=== PATIENT | female | born 1950 | race Caucasian/White ===

== ENCOUNTER 2018-06-06 09:36 | Observation (INO) | payer MEDICARE, BC ==
[~2018-06-06] VITALS: Ht 162.6 cm; Wt 98.0 kg
[~2018-06-06 09:36] MED LIST: ASPIR 8181 MG PO; CLARITIN10 MG; CLONIDINE0.1 PO; FLONASE 0.05%50 MCG NASAL; LEVAQUIN 750 M750 MG PO; TOPROL XL50 MG PO; TRIAMTERENE-HC1 EACH PO; ZOLOFT50 MG PO
[2018-06-06 09:46] VITALS: BP 185/88
[2018-06-06] MEDS ORDERED: NORVASC5 MG PO (09:53)
[2018-06-06 10:26] LABS: ABSOLUTE BASOPHILS 0.1 thou/uL (0.0-0.2); ABSOLUTE EOSINOPHILS 0.2 thou/uL (0.0-0.7); ABSOLUTE LYMPHOCYTES 1.1 thou/uL (0.8-5.3); ABSOLUTE MONOCYTES 0.7 thou/uL (0.0-1.2); ABSOLUTE NEUTROPHILS 7.6 thou/uL (1.6-8.1); BASOPHILS 1.1 %; EOSINOPHILS 2.3 %; HEMATOCRIT 47.1 % (37.0-47.0); HEMOGLOBIN 15.9 gm/dL (12.0-15.0); LYMPHOCYTES 11.4 %; MCH 30.6 pg (26.0-34.0); MCHC 33.7 g/dL (28.0-37.0); MONOCYTES 7.4 %; MPV 9.2 fl. (7.2-11.1); NUCLEATED RBCS 0 /100WBC; PLATELET COUNT* 260 thou/uL (150-400); POLYS 77.8 %; RBC 5.18 mil/uL (4.20-5.00); RDW-CV 14.3 % (10.5-14.5); WBC 9.7 thou/uL (4.0-11.0)
[2018-06-06 10:37] LABS: APTT 27.5 Seconds (25.0-31.3)
[2018-06-06 10:38] LABS: ANION GAP 11 mmol/L (7-16); BUN 23 mg/dL (7-18); CHLORIDE 97 mmol/L (98-107); CO2 29 mmol/L (21-32); CREATININE 0.6 mg/dL (0.6-1.3); GLUCOSE 119 mg/dL (70-99); SODIUM 137 mmol/L (136-145)
[2018-06-06 10:44] LABS: POTASSIUM 2.8 mmol/L (3.5-5.1)
[2018-06-06 10:49] LABS: ALBUMIN 3.6 g/dL (3.4-5.0); ALKALINE PHOSPHATASE 50 U/L (46-116); NT-PRO BRAIN NAT PEPTIDE 113 pg/mL (<300); SGOT 16 U/L (15-37); SGPT 26 U/L (30-65); TOTAL BILIRUBIN 0.4 mg/dL (<0.1-1.0); TOTAL PROTEIN 7.3 g/dL (6.4-8.2); TROPONIN-I LEVEL <0.06 ng/mL (<0.06)
[2018-06-06 10:51] LABS: URINE BILIRUBIN NEGATIVE (Negative); URINE BLOOD NEGATIVE (Negative); URINE CLARITY CLEAR; URINE COLOR YELLOW; URINE GLUCOSE-RANDOM NEGATIVE (Negative); URINE KETONES 1+ (Negative); URINE LEUKOCYTES-REFLEX NEGATIVE (Negative); URINE NITRITE-REFLEX NEGATIVE (Negative); URINE PROTEIN NEGATIVE (Negative); URINE SPECIFIC GRAVITY 1.025 (1.005-1.030); URINE UROBILINOGEN 0.2 E.U./dl (0.2-1.0)
[2018-06-06 12:00] VITALS: BP 139/86
[2018-06-06 12:43] VITALS: BP 159/80
[2018-06-06 13:05] VITALS: BP 165/79
--- NOTE | 2018-06-06 13:35 | NUR ---
PT ORIENTED TO ROOM AND UNIT. BED LOW AND LOKED, SIDE RAILS UPX 3, CALL LIGHT IN REACH WILL CONTINUE TO ASSESS.
--- NOTE | 2018-06-06 16:55 | NUR ---
PT OFF UNIT TO MRI AT 1600
--- NOTE | 2018-06-06 17:32 | EKG ---
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
--- NOTE | 2018-06-06 17:43 | NUR ---
PT RETURN FROM MRI.
[2018-06-06 20:45] VITALS: BP 135/74
[2018-06-07] VITALS: BP 127/70
[2018-06-07 04:00] VITALS: BP 127/60
[2018-06-07 05:19] LABS: ABSOLUTE BASOPHILS 0.1 thou/uL (0.0-0.2); ABSOLUTE EOSINOPHILS 0.2 thou/uL (0.0-0.7); ABSOLUTE LYMPHOCYTES 1.6 thou/uL (0.8-5.3); ABSOLUTE NEUTROPHILS 5.3 thou/uL (1.6-8.1); BASOPHILS 1.1 %; EOSINOPHILS 2.2 %; HEMATOCRIT 45.1 % (37.0-47.0); LYMPHOCYTES 19.6 %; MCH 30.5 pg (26.0-34.0); MCHC 33.4 g/dL (28.0-37.0); MCV 91.3 fL (80.0-100.0); MONOCYTES 12.8 %; MPV 8.7 fl. (7.2-11.1); NUCLEATED RBCS 0 /100WBC; PLATELET COUNT* 252 thou/uL (150-400); POLYS 64.3 %; RBC 4.94 mil/uL (4.20-5.00); RDW-CV 14.5 % (10.5-14.5); WBC 8.2 thou/uL (4.0-11.0)
[2018-06-07 05:35] LABS: CREATININE 0.6 mg/dL (0.6-1.3); MAGNESIUM 2.2 mg/dL (1.8-2.4); POTASSIUM 3.2 mmol/L (3.5-5.1)
[2018-06-07 06:07] LABS: CHOLESTEROL 177 mg/dL (<200); HDL CHOLESTEROL 49 mg/dL (>40); LDL CHOLESTEROL 114 mg/dL (<100); SERUM ASSESSMENT Clear; TC:HDL 3.6 Ratio (Not establshd); TRIGLYCERIDE 74 mg/dL (<150); VLDL 15 mg/dL (<40)
--- NOTE | 2018-06-07 07:45 | NUR ---
PT CARE ASSUMED AT 1930. SAT MAINTAINED 96%, TITRATED FROM 1L TO RA. ALERT AND ORIENTED X4. CALL LIGHT WITHIN REACH AND BE DIN LOW POSITION. UP WITH STANDBY ASSIST. STATED HEADACHE, MEDICATION GIVEN PER EMAR. POTASSIUM-3.2, NOTIFIED, HAVENT RECIEVED ORDER. [facility] DONE AND CHARTED.
[2018-06-07 08:20] VITALS: BP 135/71
[2018-06-07] MEDS ORDERED: AUGMENTIN 875-1 EACH PO (10:12)
[2018-06-07] MEDS ORDERED: KLOR-CON 1010 MEQ PO (10:13)
[2018-06-07 12:14] VITALS: BP 135/71
[2018-06-07 12:38] VITALS: BP 141/84
--- NOTE | 2018-06-07 12:47 | NUR ---
ASSUMED CARE OF PT AT 0730. PT A&O X4, CALM AND COOPERTIVE. VSS AND SR ON THE MONITOR. PT DENIED ANY C/O PAIN OR DISTRESS AND STATED 'I FEEL MUCH BETTER.' PT DISCHARGED HOME WITH , PT AND VERBALIZED UNDERSTANDING OF DISCHARGE TEACHING THAT INCLUDED MEDICATION MANAGEMETN AND F/U CARE, WERLL WHEN TO CONTACT YOUR PROVIDER. PT TOOK ALL PERSONAL BELONGINGS AND PRESCRIPTIONS AT TIME OF DISCHARGE. PT VSS, SKIN W/D/I AND NO C/O PAIN OR DISTRESS AT TIME OF DISCHARGE. IV AND HORSE BREAKER REMOVED PRIOR TO DISCHARGE.
[2018-06-07 21:08] LABS: GLYCOHEMOGLOBIN (HGB A1C) 5.6 % (4.8-5.6)
--- NOTE | 2018-06-15 15:44 | CON ---
[address] [address] CONSULTATION Name: WILLARD DEVLIN Room: [address] [place]#: [id number] Admission: 06/06/18 Attend Phys: Yehuda Bautista MD Discharge: 06/07/18 Date of : 46 Report #: [id number] THIS REPORT FOR: //name// CC: Yehuda Dey DATE OF SERVICE: 06/07/2018 HISTORY OF PRESENT ILLNESS: This is a 67-year-old female patient who was evaluated by me for a neurological etiology for the patient's dizziness. The patient indicated that she suffers from chronic sinusitis. When it flares up, sometimes she has dizziness. Her dizziness was more severe yesterday. Movement of the head made it worse. Her symptoms have resolved this morning. She is able to walk to the bathroom without any significant difficulty with ambulation. REVIEW OF SYSTEMS: Indicates she is not a diabetic. She has no prior history of stroke. She did have some nausea associated with this dizziness. I carried out the 14-point review of systems and she does not appear to have any eye, ENT, cardiac, respiratory, , musculoskeletal, constitutional, dermatological, hematological, psychiatric, throat and psychiatric symptom associated with present symptomatology. PAST MEDICAL HISTORY: Positive for some occasional dizziness when her sinuses flare up. FAMILY HISTORY: Negative for any early age stroke. SOCIAL HISTORY: She drinks alcohol once a year. She is retired, but still is pretty active. She does not smoke presently. PHYSICAL EXAMINATION: NEUROLOGIC: The patient's examination indicates she is alert and responsive. She can follow simple commands. She is oriented. Her speech, concentration, fund of knowledge and memory are at her baseline. Cranial nerve examination 2-12 looks unremarkable. I did not see any significant nystagmus. She has symmetrical strength, sensation, reflexes and tone in all 4 extremities. There is no meningeal sign. There is no papilledema. There is no cerebellar sign. GENERAL: She is a reasonably well-developed individual who does not have any dysmorphic features of eyes, ears and face. Her vision and hearing looks adequate. VITAL SIGNS: Her blood pressure is 135/71, respirations 18, pulse is 71 and temperature is 97.7. NECK: She has no thyroid mass. CARDIAC EXAMINATION: Unremarkable. LUNGS: No respiratory difficulty or rhonchi was noticed. EXTREMITIES: Pulses are difficult to feel, but she has no edema[place] [address] CONSULTATION Name: WILLARD DEVLIN Room: [address]#: [id number] Admission: 06/06/18 Attend Phys: Yehuda Bautista MD Discharge: 06/07/18 Date of : 46 Report #: [id number] jaundice. LABORATORY DATA: Laboratory workup indicates that her BUN was 23 and her hemoglobin was also trace high when she came in. Her potassium was significantly low. She had an MRI of the brain, MRA of the head and neck; they were unremarkable. IMPRESSION: It is unlikely that there is any neurological etiology for this patient's symptoms. She should be worked up for systemic etiologies including ENT pathology like benign positional vertigo or vestibular neuronitis. I do not believe any further neurological workup is indicated in this patient, especially because the patient is symptomatic and I will suggest continue workup and management of systemic causes. I discussed that aspect with the patient and I discussed that aspect with the family. I will talk to the hospitalist, but otherwise, I will sign off. Please call if further symptoms occur or any neurological followup is needed. Thank you very much for this referral. <ELECTRONICALLY SIGNED> By: Leandro Mcgee MD 06/15/18 1544 0932 [id number] Mcgee MD /nt
== END 2018-06-07 12:30 | disposition home or self-care (01) ==
LOC: M.ERS 09:36 → M.2W 11:32 → M.TBA-ER 11:32 → M.2W 11:32
PROVIDERS: Emergency Medicine Emergency Medical Services; ADMIT Family Medicine
DX: H81.10 Benign paroxysmal vertigo, unspecified ear (principal); I16.1 Hypertensive emergency; E87.6 Hypokalemia; I63.9 Cerebral infarction, unspecified; F41.9 Anxiety disorder, unspecified; I10 Essential (primary) hypertension; I16.0 Hypertensive urgency; J32.9 Chronic sinusitis, unspecified; N39.0 Urinary tract infection, site not specified; Z87.891 Personal history of nicotine dependence; Z88.2 Allergy status to sulfonamides; Z88.8 Allergy status to other drugs, medicaments and biological substances; Z79.899 Other long term (current) drug therapy; Z79.82 Long term (current) use of aspirin; R11.0 Nausea; Z72.89 Other problems related to lifestyle

== ENCOUNTER 2018-06-28 20:47 | Inpatient (IN) | payer MEDICARE, BC ==
[~2018-06-28] VITALS: Ht 162.6 cm; Wt 103.4 kg
[~2018-06-28 20:47] MED LIST changes: +AUGMENTIN 875-1 EACH PO; +KLOR-CON 1010 MEQ PO; +NORVASC5 MG PO
[2018-06-28 20:58] VITALS: BP 165/90
[2018-06-28] MEDS ORDERED: MULTIVITAMINS1 EAC7 PO (21:06)
[2018-06-28] MEDS ORDERED: VITAMIN D5000 UNIT PO (21:06)
[2018-06-28 21:21] LABS: ABSOLUTE EOSINOPHILS 0.1 thou/uL (0.0-0.7); ABSOLUTE LYMPHOCYTES 1.7 thou/uL (0.8-5.3); ABSOLUTE MONOCYTES 1.2 thou/uL (0.0-1.2); ABSOLUTE NEUTROPHILS 8.4 thou/uL (1.6-8.1); BASOPHILS 0.4 %; EOSINOPHILS 1.1 %; HEMATOCRIT 44.3 % (37.0-47.0); HEMOGLOBIN 15.2 gm/dL (12.0-15.0); LYMPHOCYTES 15.1 %; MCH 30.4 pg (26.0-34.0); MCHC 34.4 g/dL (28.0-37.0); MCV 88.4 fL (80.0-100.0); MONOCYTES 10.7 %; MPV 9.1 fl. (7.2-11.1); NUCLEATED RBCS 0 /100WBC; PLATELET COUNT* 275 thou/uL (150-400); POLYS 72.7 %; RBC 5.01 mil/uL (4.20-5.00); RDW-CV 14.3 % (10.5-14.5); WBC 11.5 thou/uL (4.0-11.0)
[2018-06-28 21:29] LABS: URINE BLOOD TRACE (Negative); URINE CLARITY CLEAR; URINE COLOR YELLOW; URINE GLUCOSE-RANDOM NEGATIVE (Negative); URINE KETONES 2+ (Negative); URINE NITRITE-REFLEX NEGATIVE (Negative); URINE PROTEIN NEGATIVE (Negative); URINE SPECIFIC GRAVITY 1.015 (1.005-1.030); URINE UROBILINOGEN 0.2 E.U./dl (0.2-1.0)
[2018-06-28 21:29] LABS: BUN 7 mg/dL (7-18); CHLORIDE 80 mmol/L (98-107); CO2 26 mmol/L (21-32); CREATININE 0.6 mg/dL (0.6-1.3); GLUCOSE 131 mg/dL (70-99)
[2018-06-28 21:31] LABS: ANION GAP 11 mmol/L (7-16); PROTIME 10.7 Seconds (9.20-11.50)
[2018-06-28 21:33] LABS: POTASSIUM 2.6 mmol/L (3.5-5.1); SODIUM 117 mmol/L (136-145)
[2018-06-28 21:37] LABS: URINE BILIRUBIN 1+ (Negative); URINE LEUKOCYTES-REFLEX 2+ (Negative)
[2018-06-28 21:39] LABS: ICTOTEST (BILI CONFIRMATORY) Negative (Negative)
[2018-06-28 21:39] LABS: ALBUMIN 3.6 g/dL (3.4-5.0); ALKALINE PHOSPHATASE 52 U/L (46-116); LIPASE 145 U/L (73-393); NT-PRO BRAIN NAT PEPTIDE 85 pg/mL (<300); SGOT 15 U/L (15-37); SGPT 22 U/L (30-65); TOTAL BILIRUBIN 0.9 mg/dL (<0.1-1.0); TROPONIN-I LEVEL <0.06 ng/mL (<0.06)
[2018-06-28 21:42] LABS: BACTERIA-REFLEX 1-9 Few /HPF (None Seen); CASTS None Seen /LPF (None Seen); CRYSTALS None Seen /LPF (None Seen); SQUAMOUS 0-3 Few /LPF (0-3); URINE RBC 0-2 Rare /HPF (0-2); URINE WBC-REFLEX 6-15 Few /HPF (0-5)
[2018-06-28 23:07] VITALS: BP 131/68
[2018-06-29] VITALS: BP 14/76; BP 144/76
[2018-06-29 01:12] LABS: CALCIUM 7.8 mg/dL (8.5-10.1); CREATININE 0.6 mg/dL (0.6-1.3)
[2018-06-29 01:14] LABS: POTASSIUM 2.5 mmol/L (3.5-5.1)
[2018-06-29 04:00] VITALS: BP 118/76
[2018-06-29 05:38] VITALS: BP 126/68
[2018-06-29 05:49] LABS: CALCIUM 8.2 mg/dL (8.5-10.1); CREATININE 0.6 mg/dL (0.6-1.3); POTASSIUM 3.2 mmol/L (3.5-5.1)
[2018-06-29 09:31] LABS: CALCIUM 8.4 mg/dL (8.5-10.1); CREATININE 0.6 mg/dL (0.6-1.3)
[2018-06-29 12:34] VITALS: BP 114/62
[2018-06-29 13:25] LABS: CALCIUM 8.6 mg/dL (8.5-10.1); CREATININE 0.6 mg/dL (0.6-1.3); POTASSIUM 3.1 mmol/L (3.5-5.1)
[2018-06-29 16:00] VITALS: BP 113/69
[2018-06-29 17:58] LABS: CALCIUM 8.5 mg/dL (8.5-10.1); CREATININE 0.6 mg/dL (0.6-1.3); MAGNESIUM 1.9 mg/dL (1.8-2.4)
[2018-06-29 20:30] VITALS: BP 145/73
[2018-06-29] MEDS ORDERED: CARVEDILOL12.5 MG PO (21:07)
[2018-06-29] MEDS ORDERED: CLARITIN10 MG PO (21:09)
[2018-06-30] VITALS: BP 131/65
[2018-06-30 04:00] VITALS: BP 152/75
[2018-06-30 05:26] LABS: ABSOLUTE BASOPHILS 0.1 thou/uL (0.0-0.2); ABSOLUTE EOSINOPHILS 0.2 thou/uL (0.0-0.7); ABSOLUTE LYMPHOCYTES 1.8 thou/uL (0.8-5.3); ABSOLUTE NEUTROPHILS 3.6 thou/uL (1.6-8.1); EOSINOPHILS 3.2 %; HEMATOCRIT 41.5 % (37.0-47.0); HEMOGLOBIN 14.2 gm/dL (12.0-15.0); LYMPHOCYTES 26.9 %; MCH 31.2 pg (26.0-34.0); MCHC 34.3 g/dL (28.0-37.0); MCV 90.9 fL (80.0-100.0); MONOCYTES 14.8 %; MPV 9.3 fl. (7.2-11.1); NUCLEATED RBCS 0 /100WBC; PLATELET COUNT* 222 thou/uL (150-400); POLYS 54.1 %; RBC 4.57 mil/uL (4.20-5.00); RDW-CV 14.1 % (10.5-14.5); WBC 6.6 thou/uL (4.0-11.0)
[2018-06-30 06:05] LABS: CALCIUM 8.9 mg/dL (8.5-10.1); CREATININE 0.7 mg/dL (0.6-1.3); POTASSIUM 4.1 mmol/L (3.5-5.1)
[2018-06-30 07:55] VITALS: BP 138/68
--- NOTE | 2018-06-30 09:09 | CON ---
[address] [address] CONSULTATION Name: WILLARD DEVLIN Room: [address] IN .R.#: [id number] Admission: 06/28/18 Attend Phys: Yarelis Lopez MD Discharge: Date of : 46 Report #: [id number] THIS REPORT FOR: //name// CC: Yarelis Dey DATE OF SERVICE: 06/29/2018 REASON FOR CONSULTATION: Consultation obtained with Dr. Simpson for the management of hyponatremia and hypokalemia. HISTORY OF PRESENT ILLNESS: The patient is a 67-year-old female patient who was seen in the Intensive Care Unit. She reports a history of being sick for the past 2-3 days. She has been having nausea with vomiting and very poor intake. She has what appears to be labyrinthitis versus Otolith disease, for which she was getting therapy. She became extremely nauseous and started developing tremors of her head and her hands and came into the ER for that. She was found to be hypokalemic and hyponatremic at that time; sodium was 117, potassium was 2.6. She has normal renal function. Magnesium was 1.5. Overnight, she received close to 2.5 liters of normal saline. Her sodium has corrected to 128 from 117 over 7 hours. We were asked to see the patient for the above-mentioned complaints. The patient denies any history of hyponatremia in the past. She is on hydrochlorothiazide at home. Her other medical problems include hypertension and anxiety. PAST MEDICAL HISTORY: As mentioned above, hypertension, history of allergies, anxiety, admitted for tremors and history of nausea and vomiting with poor intake for the past few days. HOME MEDICATIONS: Amlodipine, metoprolol, sertraline, triamterene/hydrochlorothiazide, aspirin, fluticasone, multivitamins and cholecalciferol. ALLERGIES: SHE IS ALLERGIC TO BENADRYL AND SULFONAMIDES. FAMILY HISTORY: Negative for any end-stage renal disease. SOCIAL HISTORY: No alcohol reported. No significant tobacco intake reported. REVIEW OF SYSTEMS: Nausea has improved. Her tremors have already improved. No fevers, rigors or chills. No chest pain or shortness of breath. No nausea or vomiting since last night. PHYSICAL EXAMINATION: GENERAL: On my examination, she is awake. She is alert. [place] [address] CONSULTATION Name: WILLARD DEVLIN Room: [address]#: [id number] Admission: 06/28/18 Attend Phys: Yarelis Lopez MD Discharge: Date of : 46 Report #: [id number] questions appropriately. VITAL SIGNS: Blood pressure is 126/68, pulse of 85 and temperature of 36.5. LUNGS: Diminished, but clear. HEART: Regular S1, S2. ABDOMEN: Soft, nontender. EXTREMITIES: Show no edema. NEUROLOGICAL EXAMINATION: Stable. No tremors are noted at this time. LABORATORY DATA: White count is 11.5, hemoglobin is 15.2 and platelets are normal. Metabolic panel: Sodium this morning is 128, potassium 3.2, chloride 91, bicarbonate 27, BUN is 5 and creatinine is 0.6. On admission, her sodium was 117, potassium was 2.6 and creatinine 0.6. Magnesium was 1.5. Albumin 3.6. Urinalysis showed ketonuria with leukocyte esterase and bacteria. ASSESSMENT: 1. Hyponatremia in all likelihood secondary to volume depletion and uncontrolled nausea and vomiting. She was also on hydrochlorothiazide on top of that. 2. Long-standing hypertension. 3. History of anxiety. 4. Recently, she has been on therapy for Otolith disease, which led to significant benign positional vertigo. PLAN: 1. Hyponatremia has rapidly corrected with intravenous fluid resuscitation. 2. Stop all normal saline. 3. Encourage oral intake today date with free water only. 4. Continue q. 4 hours sodium checks. 5. If in the next lab draw the sodium level does not start declining or stabilizing, we may have to start half NS, because the rate of correction for sodium is too rapid. 6. Potassium is being supplemented. 7. Supplement magnesium also. Thank you for the consultation. We will continue to follow and provide necessary support. <ELECTRONICALLY SIGNED> By: Carolin Ahn MD 06/30/18 0909 0815 [id number] Ahn MD /nt
[2018-06-30 12:00] VITALS: BP 144/88
[2018-06-30 12:07] LABS: CALCIUM 8.5 mg/dL (8.5-10.1); CREATININE 0.8 mg/dL (0.6-1.3); POTASSIUM 3.5 mmol/L (3.5-5.1)
[2018-06-30 15:00] VITALS: BP 186/83
[2018-06-30 16:00] VITALS: BP 169/81
[2018-07-01] VITALS: BP 145/71
[2018-07-01 04:00] VITALS: BP 149/83
[2018-07-01 04:55] LABS: ABSOLUTE BASOPHILS 0.1 thou/uL (0.0-0.2); ABSOLUTE EOSINOPHILS 0.3 thou/uL (0.0-0.7); ABSOLUTE LYMPHOCYTES 1.9 thou/uL (0.8-5.3); ABSOLUTE MONOCYTES 0.9 thou/uL (0.0-1.2); BASOPHILS 1.1 %; EOSINOPHILS 3.6 %; HEMATOCRIT 41.4 % (37.0-47.0); HEMOGLOBIN 14.4 gm/dL (12.0-15.0); LYMPHOCYTES 26.9 %; MCH 31.7 pg (26.0-34.0); MCHC 34.9 g/dL (28.0-37.0); MCV 90.8 fL (80.0-100.0); MONOCYTES 12.6 %; MPV 9.3 fl. (7.2-11.1); NUCLEATED RBCS 0 /100WBC; PLATELET COUNT* 231 thou/uL (150-400); POLYS 55.8 %; RBC 4.56 mil/uL (4.20-5.00); RDW-CV 14.5 % (10.5-14.5); WBC 7.2 thou/uL (4.0-11.0)
[2018-07-01 05:49] LABS: ALBUMIN 3.1 g/dL (3.4-5.0); CALCIUM 8.7 mg/dL (8.5-10.1); CREATININE 0.6 mg/dL (0.6-1.3); POTASSIUM 3.4 mmol/L (3.5-5.1); TOTAL BILIRUBIN 0.4 mg/dL (<0.1-1.0); TOTAL PROTEIN 5.9 g/dL (6.4-8.2)
[2018-07-01 08:07] VITALS: BP 134/74
[2018-07-01 10:12] VITALS: BP 134/74
--- NOTE | 2018-07-01 10:15 | EKG ---
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: : 1950 Requested By: Angy Garcia Order Number: [id number] MD: Tru Hines Measurements Intervals [place] Rate: 76 P: 20 MN: 217 QRS: -20 QRSD: 108 T: 0 QT: 398 QTc: 448 Interpretive Statements Sinus rhythm Borderline prolonged MN interval Consider left atrial enlargement Borderline left axis deviation Abnormal R-wave progression, late transition Compared to ECG 06/06/2018 09:49:02 No significant changes Electronically Signed On 07-01-2018 10:14:57 CLINICAL SAFETY SPECIALIST by Tru Hines [email or web address] <ELECTRONICALLY SIGNED> By: Tru Hines MD, FACC 07/01/18 1014 12 12 Tru Hines MD, [facility] /EPI
== END 2018-07-01 11:41 | disposition home or self-care (01) | DRG 641 ==
LOC: M.ERS 20:47 → M.2W 22:10 → M.TBA-ER 22:10 → M.ICU 22:10 → M.2W 06-29 09:54
PROVIDERS: Emergency Medicine; Internal Medicine; Internal Medicine Nephrology; ADMIT Internal Medicine
DX: E87.1 Hypo-osmolality and hyponatremia (principal); I10 Essential (primary) hypertension; H81.10 Benign paroxysmal vertigo, unspecified ear; F41.9 Anxiety disorder, unspecified; E87.6 Hypokalemia; E83.42 Hypomagnesemia; Z87.891 Personal history of nicotine dependence; Z79.2 Long term (current) use of antibiotics; Z79.899 Other long term (current) drug therapy; Z79.82 Long term (current) use of aspirin; Z88.2 Allergy status to sulfonamides; Z88.8 Allergy status to other drugs, medicaments and biological substances; Z28.9 Immunization not carried out for unspecified reason; Z80.8 Family history of malignant neoplasm of other organs or systems; Z82.3 Family history of stroke

== ENCOUNTER 2019-06-02 16:08 | Inpatient (IN) | payer MEDICARE, BC ==
[~2019-06-02] VITALS: Ht 162.6 cm; Wt 95.0 kg
[~2019-06-02 16:08] MED LIST changes: +CARVEDILOL12.5 MG PO; +CLARITIN10 MG PO; +MULTIVITAMINS1 EAC7 PO; +VITAMIN D5000 UNIT PO
[2019-06-02 16:19] VITALS: BP 215/108
[2019-06-02] MEDS ORDERED: COZAAR 50 MG TA50 M1 PO (16:25)
[2019-06-02] MEDS ORDERED: MAGNESIUM250 M1 PO (16:25)
[2019-06-02 16:28] LABS: URINE BILIRUBIN NEGATIVE (Negative); URINE BLOOD NEGATIVE (Negative); URINE CLARITY CLEAR; URINE COLOR YELLOW; URINE GLUCOSE-RANDOM NEGATIVE (Negative); URINE KETONES NEGATIVE (Negative); URINE LEUKOCYTES-REFLEX NEGATIVE (Negative); URINE NITRITE-REFLEX NEGATIVE (Negative); URINE PROTEIN NEGATIVE (Negative); URINE UROBILINOGEN 0.2 E.U./dl (0.2-1.0)
[2019-06-02 16:33] LABS: ABSOLUTE BASOPHILS 0.1 thou/uL (0.0-0.2); ABSOLUTE EOSINOPHILS 0.2 thou/uL (0.0-0.7); ABSOLUTE LYMPHOCYTES 1.8 thou/uL (0.8-5.3); ABSOLUTE MONOCYTES 0.9 thou/uL (0.0-1.2); ABSOLUTE NEUTROPHILS 6.4 thou/uL (1.6-8.1); BASOPHILS 1.1 %; EOSINOPHILS 2.5 %; HEMATOCRIT 46.7 % (37.0-47.0); LYMPHOCYTES 18.8 %; MCH 31.4 pg (26.0-34.0); MCHC 34.3 g/dL (28.0-37.0); MCV 91.5 fL (80.0-100.0); MONOCYTES 9.9 %; MPV 8.6 fl. (7.2-11.1); NUCLEATED RBCS 0 /100WBC; PLATELET COUNT* 251 thou/uL (150-400); POLYS 67.7 %; RBC 5.11 mil/uL (4.20-5.00); RDW-CV 14.6 % (10.5-14.5); WBC 9.5 thou/uL (4.0-11.0)
[2019-06-02 16:40] LABS: CALCIUM 9.2 mg/dL (8.5-10.1); CREATININE 0.8 mg/dL (0.6-1.3); POTASSIUM 4.1 mmol/L (3.5-5.1)
[2019-06-02 16:45] LABS: TOTAL BILIRUBIN 0.4 mg/dL (<0.1-1.0); TOTAL PROTEIN 7.6 g/dL (6.4-8.2)
[2019-06-02] MEDS ORDERED: CATAPRES0.1 MG PO (16:53)
[2019-06-02 20:02] VITALS: BP 129/66
[2019-06-02 20:15] VITALS: BP 111/54; BP 121/62
[2019-06-03] VITALS (11 sets, daily range): BP systolic 125–176; BP diastolic 64–90
--- NOTE | 2019-06-03 04:25 | NUR ---
RECIEVED PT PER CART ACCOMPANIED BY WILLI VALENCIA AT APPROX 2015. PT IS AWAKE AND ORIENTED X4. VSS ON ROOM AIR. EMPLOYMENT TRAINER PLACED AND IS TRACING SR. ADMISSION ASSESSMENTS DONE-SEE CHARTING. PT IS ADVISED ON THE USE OF CALL LIGHT AND ON ROOM SET-UP. BP REMAINED STABLE THROUGH OUT THIS SHIFT. WILL CONTINUE TO MONITOR PT.
--- NOTE | 2019-06-03 10:10 | NUR ---
ASSUMED PT CARE REPORT RECEIVED FROM NURSE PT IS AOX4 SINUS RYTHM ON ELECTRO MECHANIC. ON RA. VSS. SEE CHART. HOME MEDICATION GIVEN. PT DENIES PAIN, N/V, SOB. ECHO/CAROTID PENDING. PT TO BE DISCHARGED AFTER TESTS ARE DONE. CALL LIGHT AT REACH. WILL CONITNUE TO MONITOR
[2019-06-03] MEDS ORDERED: HYDRALAZINE 10M10 MG PO (10:41)
--- NOTE | 2019-06-03 11:02 | EKG ---
[place] [address] ELECTROCARDIOGRAM REPORT Name: WILLARD DEVLIN Room: [address] ADM IN .R.#: [id number] Admission: 06/02/19 Attend Phys: Vinay Mccoy Discharge: Date of : 46 Report #: [id number] THIS REPORT FOR: //name// [facility] ED Test Date: 2019-06-02 Test Time: 16:21:50 Pat Name: WILLARD DEVLIN Department: Room: [facility] Gender: F Outpatient Psychiatrist: MS : 1950 Requested By: Catherine Tobar Order Number: [id number] MD: Eduard Hansen Measurements Intervals [place] Rate: 78 P: 15 MD: 179 QRS: 85 QRSD: 104 T: 8 QT: 372 QTc: 424 Interpretive Statements Sinus rhythm Borderline right axis deviation Baseline wander in lead(s) II,V5 Compared to ECG 06/28/2018 21:13:38 No significant changes Electronically Signed On 06-03-2019 11:02:18 SHOE DRESSER by Eduard Hansen [email or web address] <ELECTRONICALLY SIGNED> By: Eduard Hansen MD, FACC 06/03/19 1102 1621 1621 Eduard Hansen MD, FAC /EPI
--- NOTE | 2019-06-03 12:18 | NUR ---
ASSUMED PT CARE REPORT REECEIVED FROM NURSE. PT IS AOX4, ON RA. VSS. SEE CHART. DENIES PAIN, N/V, DIZINESS. AM MEDICATIONS GIVEN ORDERED. PT COMPLAINS OF HEADACHE LATE MORNING TIME. TYLENOL GIVEN. PT ADMITS THAT SHE IS A LITTLE ANXIOUS. R IV LINE S.L. PATENT. PT HAS GOOD APPETITE. DISCHARGE PENDING POST ECHOCARDIOGRAM AND CAROTID US. AWAITING FOR THESE TWO TESTS. CALL LIGHT AT REACH. WILL CONTINUE TO MONITOR PT.
--- NOTE | 2019-06-03 13:38 | 2DMMODE ---
[place] [address] 2 D/M-MODE ECHOCARDIOGRAM Name: WILLARD DEVLINAN Room: [address] IN [facility]#: [id number] Admission: 06/02/19 Attend Phys: Vinay winter Sa Discharge: Date of : 46 Date of Service: 06/03/19 1337 Report #: [id number] THIS REPORT FOR: //name// APPROVED REPORT Study performed: 06/03/2019 11:49:40 EXAM: Comprehensive 2D, Doppler, and color-flow Echocardiogram Patient Location: In-Patient Room #: [facility] Status: routine BSA: 2.01 HR: 72 bpm BP: 147/77 mmHg Rhythm: NSR Other Information Study Quality: Good Indications Hypertension/HDD 2D Dimensions IVSd: 11.13 (7-11mm) LVOT Diam: 20.25 (18-24mm) LVDd: 47.37 mm PWd: 10.20 (7-11mm) Ascending Ao: 27.76 (22-36mm) LVDs: 40.48 (25-40mm) Volumes Left Atrial Volume (Systole) LA ESV Index: 21.10 mL/m2 Aortic Valve AoV Peak Farshad.: 1.63 m/s AO Peak Gr.: 10.65 mmHg LVOT Max P.10 mmHg AO Mean Gr.: 5.93 mmHg LVOT Mean P.76 mmHg LVOT Max V: 1.33 m/s AO V2 VTI: 32.04 cm LVOT Mean V: 0.74 m/s ADI (VTI): 2.88 cm2 LVOT V1 VTI: 28.67 cm Mitral Valve E/A Ratio: 1.05 MV Decel. Time: 207.19 ms MV E Max Farshad.: 0.80 m/s MV PHT: 60.09 [place] [address] 2 D/M-MODE ECHOCARDIOGRAM Name: WILLARD DEVLIN Room: [address] IN .R.#: [id number] Admission: 06/02/19 Attend Phys: Vinay winter Sa Discharge: Date of : 46 Date of Service: 06/03/19 1337 Report #: [id number] MVA (PHT): 3.66 cm2 TDI E/Lateral E': 7.27 E/Medial E': 8.89 Medial E' Farshad.: 0.09 m/s Lateral E' Farshad.: 0.11 m/s Pulmonary Valve PV Peak Farshad.: 1.04 m/s PV Peak Gr.: 4.34 mmHg Left Ventricle The left ventricle is normal size. There is normal LV segmental wall motion. There is normal left ventricular wall thickness. Left ventricular systolic function is normal. LVEF is 55-60%. The left ventricular diastolic function is normal. Right Ventricle The right ventricle is normal size. The right ventricular systolic function is normal. Atria The left atrium size is normal. The right atrium size is normal. Aortic Valve The aortic valve is normal in structure. No aortic regurgitation is present. There is no aortic valvular stenosis. Mitral Valve The mitral valve is normal in structure. Trace mitral regurgitation. No evidence of mitral valve stenosis. Tricuspid Valve The tricuspid valve is normal in structure. Trace tricuspid regurgitation. Pulmonic Valve The pulmonary valve is normal in structure. There is no pulmonic valvular regurgitation. Great Vessels The aortic root is normal in size. IVC is normal in size and collapses >50% with inspiration. Pericardium There is no pericardial [place] [address] 2 D/M-MODE ECHOCARDIOGRAM Name: WILLARD DEVLIN Room: [address] IN [facility]#: [id number] Admission: 06/02/19 Attend Phys: Vinay winter Sa Discharge: Date of : 46 Date of Service: 06/03/19 1337 Report #: [id number] <Conclusion> The left ventricle is normal size. There is normal left ventricular wall thickness. Left ventricular systolic function is normal. LVEF is 55-60%. The left ventricular diastolic function is normal. Trace tricuspid regurgitation. IVC is normal in size and collapses >50% with inspiration. <ELECTRONICALLY SIGNED> By: Eduard Hansen MD, FACC 06/03/19 133 36 36 Eduard Hansen MD, FACC /INF
--- NOTE | 2019-06-03 17:12 | NUR ---
ECHO AND US DONE AT BEDSIDE. PT COMPLAINS OF HEAVINESS IN HEAD AND SINUS PRESSURE IN HEAD. SBP 176. HYDRALIZINE GIVEN. BP RECHECKED 30 MINUTES AFTER. 160/80. PT IS ALSO ANXIOUS. PT ENCOURAGED TO GET UP AND WALK. SHE IS NOW SITTING IN CHAIR. WILL MONITOR BP AGAIN AND DISCHARGE IF FEELING BETTER. WILL CONTINUE TO MONITOR
--- NOTE | 2019-06-03 17:47 | NUR ---
PT DOES NOT FEEL GOOD STILL SHE HAS DIZINESS, WEAKNESS AND SHAAKINESS WHEN SHE GETS UP BP 176/90. PT AGREES TO STAY IN BECAUSE SHE DOES NOT FEEL SAFE TO GO HOME. THIS NURSE PAGED COPY MANAGER THIS NIGHT AND NOTIFY ABOUT THE SITUATION. PTYLENOL GIVEN FOR HEADACHE. PT DENIES N/V.
--- NOTE | 2019-06-03 17:57 | NUR ---
dr brown with patient staying for the night
[2019-06-04] VITALS: BP 94/54
[2019-06-04 04:00] VITALS: BP 137/62
[2019-06-04 08:00] VITALS: BP 152/77
[2019-06-04 09:51] VITALS: BP 116/74
--- NOTE | 2019-06-04 10:33 | NUR ---
assumed pt care report received from nurse. pt is aox4, on ra. vss. see chart. pt got tylenol and exedrine for headache. pt received morning medications. blood pressure rechecked. see chart. discharge ordered. heart monitor retrieved. iv line taken out. discharge instructions given to patient. pt awaiting for case picker by . will continue to monitor until discharge
--- NOTE | 2019-06-04 10:59 | NUR ---
PT STATED RELIEF FROM EXEDRINE. DENIES HEADACHE AT TIME OF DISCHARGE. PT LEFT ACCOMPANIED BY , AMBULATORY, BELONGING JONY ALONG.
== END 2019-06-04 11:01 | disposition home or self-care (01) | DRG 305 ==
LOC: M.ERS 16:08 → M.TBA-ER 18:32 → M.2W 18:32
PROVIDERS: Nurse Practitioner Family; ADMIT Family Medicine
DX: I16.0 Hypertensive urgency (principal); E87.1 Hypo-osmolality and hyponatremia; F41.9 Anxiety disorder, unspecified; I10 Essential (primary) hypertension; J32.9 Chronic sinusitis, unspecified; T50.905A Adverse effect of unspecified drugs, medicaments and biological substances, initial encounter; Y92.89 Other specified places as the place of occurrence of the external cause; Z79.899 Other long term (current) drug therapy; Z88.2 Allergy status to sulfonamides; Z88.8 Allergy status to other drugs, medicaments and biological substances; Z79.82 Long term (current) use of aspirin; Z87.891 Personal history of nicotine dependence; Z90.49 Acquired absence of other specified parts of digestive tract; Z80.0 Family history of malignant neoplasm of digestive organs; Z82.3 Family history of stroke

== ENCOUNTER → 2019-07-03 | Outpatient (CLI) | payer MEDICARE, BC ==
[~2019-07-03] MED LIST changes: +CATAPRES0.1 MG PO; +COZAAR 50 MG TA50 M1 PO; +HYDRALAZINE 10M10 MG PO; +MAGNESIUM250 M1 PO
--- NOTE | 2019-07-11 12:52 | SLEEP ---
[facility] [address] [place] [address] SLEEP STUDY REPORT Name: WILLARD DEVLIN Room: [facility]#: [id number] Admission: 07/03/19 Attend Phys: Dee Dee Eisenberg Discharge: Date of : 46 Report #: [id number] THIS REPORT FOR: //name// CC: Erickson Dey DO This study has been reviewed in its entirety by a board certified sleep specialist DATE OF SERVICE: 07/04/2019 HOME SLEEP STUDY REFERRING PHYSICIAN: Erickson Dey DO The patient is 68 years old who weighs 206 pounds with a BMI of 35. The patient's Kim score was 9. The patient underwent home sleep study performed by [facility]. Total recording time was 531 minutes. During the night study, the patient had 49 central apneas, 19 obstructive apneas, no mixed apneas and 20 hypopneas. The patient's apnea-hypopnea index was 10.9 per hour. No supine sleep recorded. Nocturnal oximetry study revealed an average oxygen saturation of 91% with a lowest of 83%. Forty six minutes were spent in oxygen saturation of less than 90%. Mean heart rate was 65 beats per minute with a maximum of 95 beats per minute. IMPRESSION: 1. Mild sleep apnea-hypopnea syndrome at an AHI of 10.9 per hour. 2. Nocturnal hypoxia secondary to obstructive sleep apnea. RECOMMENDATIONS: 1. The patient is clinically symptomatic with an Kim score of 9. Consider treatment of sleep apnea with either CPAP or oral appliance. 2. Weight loss is strongly advised. 3. Avoid TECHNOLOGY RESOURCE TEACHER depressants. 4. If the patient is treated with CPAP, then follow up in 4-6 weeks to assess compliance with CPAP and to document clinical improvement. <ELECTRONICALLY SIGNED> By: Sandeep Byers MD 07/11/19 1252 0826 [id number] Byers MD /nt
== END ==
LOC: M.SLEEPLAB 12:53
DX: G47.33 Obstructive sleep apnea (adult) (pediatric) (principal); G47.30 Sleep apnea, unspecified; I10 Essential (primary) hypertension; G47.8 Other sleep disorders

== ENCOUNTER 2020-03-15 16:03 | Emergency (ER) | payer MEDICARE, BC ==
[~2020-03-15] VITALS: Ht 162.6 cm; Wt 95.3 kg
[2020-03-15 16:49] LABS: URINE BILIRUBIN NEGATIVE (Negative); URINE BLOOD TRACE (Negative); URINE CLARITY CLEAR; URINE COLOR YELLOW; URINE GLUCOSE-RANDOM NEGATIVE (Negative); URINE KETONES TRACE (Negative); URINE LEUKOCYTES-REFLEX NEGATIVE (Negative); URINE NITRITE-REFLEX NEGATIVE (Negative); URINE PROTEIN NEGATIVE (Negative); URINE SPECIFIC GRAVITY 1.015 (1.005-1.030); URINE UROBILINOGEN 0.2 E.U./dl (0.2-1.0)
[2020-03-15 16:59] LABS: ABSOLUTE BASOPHILS 0.1 thou/uL (0.0-0.2); ABSOLUTE EOSINOPHILS 0.2 thou/uL (0.0-0.7); ABSOLUTE LYMPHOCYTES 1.6 thou/uL (0.8-5.3); ABSOLUTE MONOCYTES 0.9 thou/uL (0.0-1.2); ABSOLUTE NEUTROPHILS 6.4 thou/uL (1.6-8.1); BASOPHILS 0.9 %; HEMATOCRIT 43.1 % (37.0-47.0); HEMOGLOBIN 15.1 gm/dL (12.0-15.0); LYMPHOCYTES 17.7 %; MCH 31.9 pg (26.0-34.0); MCV 91.3 fL (80.0-100.0); MONOCYTES 9.5 %; MPV 7.7 fl. (7.2-11.1); NUCLEATED RBCS 0 /100WBC; PLATELET COUNT* 241 thou/uL (150-400); POLYS 69.9 %; RBC 4.72 mil/uL (4.20-5.00); RDW-CV 14.7 % (10.5-14.5); WBC 9.1 thou/uL (4.0-11.0)
[2020-03-15 17:04] LABS: CALCIUM 8.7 mg/dL (8.5-10.1); CREATININE 0.7 mg/dL (0.6-1.3)
[2020-03-15 17:08] LABS: ALBUMIN 3.9 g/dL (3.4-5.0); TOTAL BILIRUBIN 0.6 mg/dL (<0.1-1.0); TOTAL PROTEIN 7.2 g/dL (6.4-8.2)
[2020-03-15 20:54] LABS: CALCIUM 8.3 mg/dL (8.5-10.1); CREATININE 0.6 mg/dL (0.6-1.3); POTASSIUM 3.4 mmol/L (3.5-5.1)
[2020-03-15 21:44] VITALS: BP 143/78
--- NOTE | 2020-03-16 11:30 | EKG ---
[place] [address] ELECTROCARDIOGRAM REPORT Name: WILLARD DEVLIN Room: [facility]#: [id number] Admission: 03/15/20 Attend Phys: Discharge: 03/15/20 Date of : 46 Date of Service: 03/15/20 1611 Report #: [id number] THIS REPORT FOR: //name// [facility] ED Test Date: 2020-03-15 Test Time: 16:11:43 Pat Name: WILLARD DEVLIN Department: Room: Gender: F Analog Circuit Designer: : 1950 Requested By: Catherine Tobar Order Number: [id number] MD: Eduard Hansen Measurements Intervals [place] Rate: 84 P: 48 PA: 223 QRS: 2 QRSD: 109 T: 31 QT: 368 QTc: 436 Interpretive Statements Sinus rhythm Prolonged PA interval Probable left atrial enlargement Compared to ECG 06/02/2019 16:21:50 First degree AV block now present Electronically Signed On 03-16-2020 11:30:34 CDT by Eduard Hansen [email or web address] <ELECTRONICALLY SIGNED> By: Eduard Hansen MD, FACC 03/16/20 1130 1611 1611 Eduard Hansen MD, [facility] /EPI
== END 2020-03-15 21:44 | disposition home or self-care (01) ==
LOC: M.ERS 16:03
PROVIDERS: Nurse Practitioner Family
DX: I10 Essential (primary) hypertension (principal); E87.6 Hypokalemia; E83.42 Hypomagnesemia; E87.1 Hypo-osmolality and hyponatremia; Z88.2 Allergy status to sulfonamides; Z88.6 Allergy status to analgesic agent; Z90.49 Acquired absence of other specified parts of digestive tract; Z90.89 Acquired absence of other organs; Z90.710 Acquired absence of both cervix and uterus

== ENCOUNTER → 2020-03-22 | Outpatient (CLI) | payer MEDICARE, BC | LOC: M.RAD 03-17 14:58 | PROVIDERS: ATTEND Family Medicine | DX: Z12.31 Encounter for screening mammogram for malignant neoplasm of breast (principal); Z78.0 Asymptomatic menopausal state ==

== ENCOUNTER → 2020-05-04 | Outpatient (CLI) | payer MEDICARE, BC | LOC: M.CT 09:16 | PROVIDERS: ATTEND Internal Medicine | DX: N20.0 Calculus of kidney (principal); I70.8 Atherosclerosis of other arteries; D35.00 Benign neoplasm of unspecified adrenal gland; Z90.710 Acquired absence of both cervix and uterus; Z90.49 Acquired absence of other specified parts of digestive tract; Z88.8 Allergy status to other drugs, medicaments and biological substances; Z79.899 Other long term (current) drug therapy ==

== ENCOUNTER → 2020-06-01 | Outpatient (CLI) | payer MEDICARE, BC | LOC: M.RAD 15:01 | PROVIDERS: ATTEND Internal Medicine Critical Care Medicine | DX: R06.02 Shortness of breath (principal) ==

== ENCOUNTER 2020-06-11 16:28 | Emergency (ER) | payer MEDICARE, BC ==
[~2020-06-11] VITALS: Ht 160 cm; Wt 96.2 kg
[2020-06-11 17:29] LABS: ABSOLUTE BASOPHILS 0.1 thou/uL (0.0-0.2); ABSOLUTE EOSINOPHILS 0.4 thou/uL (0.0-0.7); ABSOLUTE LYMPHOCYTES 1.4 thou/uL (0.8-5.3); ABSOLUTE MONOCYTES 0.9 thou/uL (0.0-1.2); ABSOLUTE NEUTROPHILS 7.9 thou/uL (1.6-8.1); BASOPHILS 1.2 %; EOSINOPHILS 3.7 %; LYMPHOCYTES 13.2 %; MCH 31.7 pg (26.0-34.0); MCHC 34.1 g/dL (28.0-37.0); MCV 92.9 fL (80.0-100.0); MONOCYTES 8.1 %; MPV 7.4 fl. (7.2-11.1); NUCLEATED RBCS 0 /100WBC; PLATELET COUNT* 286 thou/uL (150-400); POLYS 73.8 %; RBC 5.06 mil/uL (4.20-5.00); RDW-CV 14.3 % (10.5-14.5); WBC 10.7 thou/uL (4.0-11.0)
[2020-06-11 17:46] LABS: CREATININE 0.6 mg/dL (0.6-1.3); POTASSIUM 3.7 mmol/L (3.5-5.1)
[2020-06-11 17:56] LABS: ALBUMIN 3.9 g/dL (3.4-5.0); TOTAL BILIRUBIN 0.5 mg/dL (<0.1-1.0); TOTAL PROTEIN 7.6 g/dL (6.4-8.2)
[2020-06-11 18:43] VITALS: BP 191/97
== END 2020-06-11 18:43 | disposition home or self-care (01) ==
LOC: M.ERS 16:28
PROVIDERS: Physician Assistant
DX: I10 Essential (primary) hypertension (principal); Z20.828 Contact with and (suspected) exposure to other viral communicable diseases

== ENCOUNTER → 2020-09-23 | Outpatient (CLI) | payer MEDICARE, BC ==
--- NOTE | 2020-09-28 00:03 | PF ---
[address] [address] PULMONARY FUNCTION REPORT Name: WILLARD DEVLIN Room: [facility].#: [id number] Admission: 09/23/20 Attend Phys: Justin Cortes MD Discharge: Date of : 46 Report #: [id number] THIS REPORT FOR: cc: Erickson Dey Vincent R. DO ~ Justin Cortes MD DATE OF SERVICE: 09/23/2020 The FEV1/FVC ratio is decreased to 68% with an FVC normal at 99% and FEV1 normal at 90%. The GKS22-97 is decreased to 74%. After the administration of a bronchodilator, there is no significantly increase in any of these values. The patient's FEV1 is noted to be 2.03 liters. This does not increase after the administration of a bronchodilator. The total lung capacity is normal at 112% with residual volume increased to 124%. The flow volume loop is concave upwards. The DLCO as adjusted for hemoglobin is normal at 88%. IMPRESSION: 1. Mild obstruction without evidence of reversibility. 2. There is hyperinflation with a normal total lung capacity, but residual volume mildly increased to 124% due to underlying obstruction. 3. DLCO is normal. <ELECTRONICALLY SIGNED> By: Justin Cortes MD 09/28/20 0003 52 [id number] ten Garcia
== END ==
LOC: M.PUL 08:43
PROVIDERS: ATTEND Internal Medicine Critical Care Medicine
DX: J45.30 Mild persistent asthma, uncomplicated (principal)

== ENCOUNTER → 2020-11-08 | Outpatient (CLI) | payer MEDICARE, BC | LOC: M.ULTRA 15:00 | PROVIDERS: ATTEND Nurse Practitioner | DX: M54.42 Lumbago with sciatica, left side (principal); M79.605 Pain in left leg; M79.89 Other specified soft tissue disorders; I10 Essential (primary) hypertension ==